=== PATIENT | female | born 1940 | race Two or more races ===

== ENCOUNTER → 2017-09-07 | Outpatient (CLI) | payer SELFPAY | END | disposition home or self-care (01) | LOC: HKI 14:17 | DX: Z48.02 Encounter for removal of sutures (principal); S72.142D Displaced intertrochanteric fracture of left femur, subsequent encounter for closed fracture with routine healing; X58.XXXD Exposure to other specified factors, subsequent encounter | CPT/HCPCS: 73502 ==